=== PATIENT | female | born 1995 | race Two or more races ===

== ENCOUNTER 2020-02-13 07:18 | Observation (INO) | payer MEDICAID ==
[~2020-02-13] VITALS: Ht 157.5 cm; Wt 71.2 kg
[2020-02-13 07:40] VITALS: BP 110/70
[2020-02-13] MEDS ORDERED: ONDANSETRON ODT 4 MG TAB PO ONE (07:45)
== END 2020-02-13 09:15 | disposition home or self-care (01) | DRG 566 ==
LOC: ER 07:18 → LDRP 07:55
PROVIDERS: ADMIT Obstetrics & Gynecology; ATTEND Obstetrics & Gynecology
DX: O21.2 Late vomiting of pregnancy (principal); O98.512 Other viral diseases complicating pregnancy, second trimester; E86.0 Dehydration; R19.7 Diarrhea, unspecified; Z3A.24 24 weeks gestation of pregnancy
CPT/HCPCS: 59025; 81002; 99284; G0378; Q0162

== ENCOUNTER 2020-04-01 13:12 | Observation (INO) | payer MEDICAID | END 2020-04-01 14:39 | disposition home or self-care (01) | DRG 566 | LOC: LDRP 13:12 | PROVIDERS: ADMIT Specialist; ATTEND Specialist | DX: O24.414 Gestational diabetes mellitus in pregnancy, insulin controlled (principal); Z3A.33 33 weeks gestation of pregnancy | CPT/HCPCS: 59025; 76818; 81002; 82962; G0378 ==

== ENCOUNTER 2020-04-05 15:25 | Observation (INO) | payer MEDICAID ==
[2020-04-05] MEDS ORDERED: METF500S PO (16:30)
[2020-04-05] MEDS ORDERED: PREN-96 PO (16:30)
== END 2020-04-05 16:45 | disposition home or self-care (01) | DRG 566 ==
LOC: LDRP 15:25
PROVIDERS: ADMIT Specialist; ATTEND Specialist
DX: O24.414 Gestational diabetes mellitus in pregnancy, insulin controlled (principal); Z3A.33 33 weeks gestation of pregnancy
CPT/HCPCS: 59025; 76818; 81002; 82948; 82962; G0378

== ENCOUNTER 2020-04-08 15:18 | Observation (INO) | payer MEDICAID ==
[~2020-04-08 15:18] MED LIST: METF500S PO; PREN-96 PO
== END 2020-04-08 16:25 | disposition home or self-care (01) | DRG 566 ==
LOC: LDRP 15:18
PROVIDERS: ADMIT Specialist; ATTEND Specialist
DX: O24.414 Gestational diabetes mellitus in pregnancy, insulin controlled (principal); Z3A.34 34 weeks gestation of pregnancy; Z98.891 History of uterine scar from previous surgery
CPT/HCPCS: 59025; 76818; 81002; 82948; 82962; G0378

== ENCOUNTER 2020-04-12 15:23 | Observation (INO) | payer MEDICAID ==
[2020-04-12] MEDS ORDERED: LACTATED RINGER'S 1,000 ML IV ONE (17:30)
== END 2020-04-12 20:21 | disposition home or self-care (01) | DRG 566 ==
LOC: LDRP 15:23
PROVIDERS: ADMIT Specialist; ATTEND Specialist
DX: O24.419 Gestational diabetes mellitus in pregnancy, unspecified control (principal); Z3A.34 34 weeks gestation of pregnancy
CPT/HCPCS: 59025; 76818; 81002; 82962; 94760; 96360; 96361; G0378

== ENCOUNTER 2020-04-15 13:20 | Observation (INO) | payer MEDICAID ==
[2020-04-15 15:02] LABS: Protein, Urine 8.2 mg/dL (0.0-11.9)
[2020-04-15 16:03] LABS: Creatinine Clearance, Urine 836.06 mL/min (75-115)
== END 2020-04-15 16:16 | disposition home or self-care (01) | DRG 566 ==
LOC: LDRP 13:20
PROVIDERS: ADMIT Specialist; ATTEND Specialist
DX: O99.89 Other specified diseases and conditions complicating pregnancy, childbirth and the puerperium (principal); R33.9 Retention of urine, unspecified; Z3A.35 35 weeks gestation of pregnancy
CPT/HCPCS: 59025; 76818; 81002; 82575; 82962; 84156; G0378

== ENCOUNTER 2020-04-19 13:18 | Observation (INO) | payer MEDICAID | END 2020-04-19 14:41 | disposition home or self-care (01) | DRG 566 | LOC: LDRP 13:18 | PROVIDERS: ADMIT Specialist; ATTEND Specialist | DX: O24.414 Gestational diabetes mellitus in pregnancy, insulin controlled (principal); Z3A.35 35 weeks gestation of pregnancy | CPT/HCPCS: 59025; 76818; 81002; 82948; 82962; G0378 ==

== ENCOUNTER 2020-04-22 12:31 | Observation (INO) | payer MEDICAID | END 2020-04-22 14:10 | disposition home or self-care (01) | DRG 566 | LOC: LDRP 13:30 | PROVIDERS: ADMIT Specialist; ATTEND Specialist | DX: O24.415 Gestational diabetes mellitus in pregnancy, controlled by oral hypoglycemic drugs (principal); Z3A.36 36 weeks gestation of pregnancy | CPT/HCPCS: 59025; 76818; 81002; 82962; G0378 ==

== ENCOUNTER 2020-04-26 10:02 | Observation (INO) | payer MEDICAID | END 2020-04-26 13:50 | disposition home or self-care (01) | DRG 566 | LOC: LDRP 12:06 | PROVIDERS: ADMIT Specialist; ATTEND Specialist | DX: O24.415 Gestational diabetes mellitus in pregnancy, controlled by oral hypoglycemic drugs (principal); O34.219 Maternal care for unspecified type scar from previous cesarean delivery; Z3A.36 36 weeks gestation of pregnancy | CPT/HCPCS: 59025; 76818; 81002; 82948; 82962; G0378 ==

== ENCOUNTER 2020-04-29 09:30 | Observation (INO) | payer MEDICAID | END 2020-04-29 10:38 | disposition home or self-care (01) | DRG 566 | LOC: LDRP 09:30 | PROVIDERS: ADMIT Specialist; ATTEND Specialist | DX: O24.414 Gestational diabetes mellitus in pregnancy, insulin controlled (principal); Z3A.36 36 weeks gestation of pregnancy; Z79.84 Long term (current) use of oral hypoglycemic drugs; Z98.891 History of uterine scar from previous surgery | CPT/HCPCS: 59025; 76818; 81002; 82948; 82962; G0378 ==

== ENCOUNTER 2020-05-03 09:30 | Observation (INO) | payer MEDICAID ==
[~2020-05-03] VITALS: Ht 157.5 cm; Wt 74.4 kg
[2020-05-03 10:46] LABS: Protein, Urine 13.2 mg/dL (0.0-11.9)
[2020-05-03 11:15] LABS: 24 Hr. Total Protein, Urine 369.6 mg/24 Hr (<149.1)
== END 2020-05-03 11:15 | disposition home or self-care (01) | DRG 566 ==
LOC: LDRP 09:30
PROVIDERS: ADMIT Obstetrics & Gynecology; ATTEND Obstetrics & Gynecology
DX: O24.419 Gestational diabetes mellitus in pregnancy, unspecified control (principal); Z3A.37 37 weeks gestation of pregnancy
CPT/HCPCS: 59025; 76818; 81002; 82962; 84156; 94760; G0378

== ENCOUNTER 2020-05-04 09:50 | Inpatient (IN) | payer MEDICAID ==
[~2020-05-04] VITALS: Ht 157.5 cm; Wt 75.7 kg
[2020-05-04] MEDS ORDERED: LACTATED RINGER'S 1,000 ML IV ONE (11:00)
[2020-05-04] MEDS ORDERED: NIFEdipine 10 MG CAP PO ONE (11:00)
[2020-05-04] MEDS ORDERED: LACTATED RINGER'S 1,000 ML IV SCH ×2 (11:30→18:47)
[2020-05-04] MEDS ORDERED: NIFEdipine 10 MG CAP PO SCH ×2 (16:00→18:00)
[2020-05-04 16:03] LABS: Basophils # (auto) 0.1 10 ^3/uL (0-0.2); Basophils % (auto) 0.7 % (0.0-2.0); Eosinophils # (auto) 0 10 ^3/uL (0-0.8); Eosinophils % (auto) 0.5 % (0.0-7.0); Hematocrit 37.7 % (36.0-46.0); Hemoglobin 12.2 g/dL (12.2-16.2); Lymphocytes # (auto) 1.3 10 ^3/uL (0.4-5.4); Lymphocytes % (auto) 14.9 % (10.0-50.0); Mean Corpuscular Hemoglobin 28.1 pg (28.0-32.0); Mean Corpuscular Hgb Conc. 32.3 g/dL (32.0-36.0); Monocytes # (auto) 0.6 10 ^3/uL (0-1.3); Monocytes % (auto) 6.3 % (0.0-12.0); Neutrophils # (auto) 6.9 10 ^3/uL (1.6-8.6); Neutrophils % (auto) 77.6 % (37.0-80.0); Nucleated Red Blood Cells % 0.1 %; Platelet Count (auto) 132 10^3/uL (140-450); Red Blood Cells 4.34 10^6/uL (4.0-5.20); Red Cell Distribution Width 15.9 % (11.8-14.3); White Blood Cell 8.9 10^3/uL (4.4-10.8)
[2020-05-04 16:24] LABS: Albumin 2.5 g/dL (3.4-5.0); Potassium 4.2 mmol/L (3.5-5.1); Uric Acid 4.8 mg/dL (2.6-6.0)
[2020-05-04 16:27] LABS: BUN/Creatinine Ratio 10.5; Bilirubin, Total 0.3 mg/dL (0.2-1.0); INR 0.95 (0.9-1.15); Partial Thromboplastin Time 30.3 sec (23.64-32.05); Total Protein 6.4 g/dL (6.4-8.2)
[2020-05-04 16:41] LABS: Urine Bacteria MANY /hpf (None Seen); Urine Blood Negative /uL (Negative); Urine Specific Gravity 1.008 (1.001-1.035); Urine WBC 2 /hpf (0 - 5)
[2020-05-04] MEDS ORDERED: TETRACAINE 1% INJ 2 ML VIAL IJ ONE (17:26)
[2020-05-04] MEDS ORDERED: MORPHINE SULF(PF) 0.5MG/ML 10ML VIAL ONE (17:38)
[2020-05-04] MEDS ORDERED: fentaNYL CITRATE 100 MCG/2 ML VL ONE (17:38)
[2020-05-04] MEDS ORDERED: SUCCINYLCHOLINE CHLORIDE 20 MG/ML 10ML VIAL IV ONE (17:40)
[2020-05-04] MEDS ORDERED: ONDANSETRON HCL 4 MG/2 ML VIAL IV PRN ×2 (19:00)
[2020-05-04] MEDS ORDERED: diphenhdrAMINE HCL 50 MG/1 ML VL IV PRN (19:00)
[2020-05-04] MEDS ORDERED: GUM (CHEWING) 1 GUM CHEW CHEW ONE (19:00)
[2020-05-04] MEDS ORDERED: ACETAMINOPHEN IV 1000 MG/100ML (10MG/ML) IV PRN (19:00)
[2020-05-04] MEDS ORDERED: NALOXONE HCL 0.4 MG/ML VIAL IV PRN (19:00)
[2020-05-04] MEDS ORDERED: HYDROmorphone HCL 2 MG/ML VL IV PRN ×2 (19:00)
[2020-05-04] MEDS ORDERED: KETOROLAC TROMETH 30 MG/ML 1ML VIAL IV PRN (19:00)
[2020-05-04 23:00] VITALS: BP 114/72
[2020-05-05] MEDS: ceFAZolin 1GM/50ML 50 ML IV SCH ×3 (01:48→17:51)
[2020-05-05 03:00] VITALS: BP 111/68
[2020-05-05 05:07] LABS: RPR Non Reactive (Non Reactive)
[2020-05-05 06:56] VITALS: BP 105/68
--- NOTE | 2020-05-05 07:30 | NUR ---
Pulido catheter dc'd Order to discontinue pulido catheter. Pulido dc'd with clean technique following deflation of balloon. Patient tolerated well with no complaints of pain. Continue care.
[2020-05-05 07:49] LABS: Basophils # (auto) 0.1 10 ^3/uL (0-0.2); Basophils % (auto) 0.5 % (0.0-2.0); Eosinophils # (auto) 0.1 10 ^3/uL (0-0.8); Eosinophils % (auto) 0.7 % (0.0-7.0); Hematocrit 33.3 % (36.0-46.0); Lymphocytes # (auto) 1.4 10 ^3/uL (0.4-5.4); Lymphocytes % (auto) 13.9 % (10.0-50.0); Mean Corpuscular Hemoglobin 28.6 pg (28.0-32.0); Mean Corpuscular Hgb Conc. 33.2 g/dL (32.0-36.0); Mean Corpuscular Volume 86.3 fL (80.0-100.0); Monocytes # (auto) 0.8 10 ^3/uL (0-1.3); Monocytes % (auto) 7.4 % (0.0-12.0); Neutrophils % (auto) 77.5 % (37.0-80.0); Platelet Count (auto) 112 10^3/uL (140-450); Red Blood Cells 3.86 10^6/uL (4.0-5.20); Red Cell Distribution Width 15.5 % (11.8-14.3); White Blood Cell 10.3 10^3/uL (4.4-10.8)
--- NOTE | 2020-05-05 08:45 | NUR ---
PT ambulates in [place] with no signs of distress.
[2020-05-05 10:45] VITALS: BP 96/61
--- NOTE | 2020-05-05 14:11 | NUR ---
Received Post Op day [address] Callahan.
[2020-05-05] MEDS ORDERED: SIMETHICONE 80 MG CHEWABLE TABLET PO PRN (14:15)
[2020-05-05] MEDS ORDERED: HYDROcodone-ACET 5/325MG TAB PO PRN (14:15)
[2020-05-05] MEDS: IBUPROFEN 800 MG TAB PO PRN ×2 (15:16→22:51)
[2020-05-05 15:22] VITALS: BP 112/72
[2020-05-05] MEDS ORDERED: ceFAZolin 1GM/50ML 50 ML IV ONE (17:49)
[2020-05-05 18:55] VITALS: BP 106/68
[2020-05-05] MEDS: DOCUSATE SOD 100 MG CAP PO SCH (22:05)
[2020-05-05 22:55] VITALS: BP 119/76
[2020-05-06 03:15] VITALS: BP 117/77
[2020-05-06] MEDS: HYDROcodone-ACET 5/325MG TAB PO PRN ×2 (03:30→15:10)
[2020-05-06 07:00] VITALS: BP 124/79
--- NOTE | 2020-05-06 07:00 | NUR ---
Educated on need to use IS 10x hour to prevent pneumonia. Verbalized understanding. Demonstrated proper technique. Reach 1500. Addendum: 05/06/20 at 1113 by DAKOTA GUY RN Amended: Links added.
--- NOTE | 2020-05-06 07:00 | NUR ---
IV removal IV DC'd with sterile technique, catheter fully intact. Pressure dressing applied to site. Patient tolerated procedure well. Discharged with aftercare instructions per MD. Addendum: 05/06/20 at 1110 by DAKOTA GUY RN Amended: Links added.
[2020-05-06] MEDS: DOCUSATE SOD 100 MG CAP PO SCH ×2 (10:43→21:58)
[2020-05-06] MEDS: IBUPROFEN 800 MG TAB PO PRN ×2 (10:44→21:58)
[2020-05-06 10:45] VITALS: BP 122/73
[2020-05-06 15:00] VITALS: BP 121/86
[2020-05-06 19:00] VITALS: BP 109/72
[2020-05-06 22:59] VITALS: BP 134/82
[2020-05-07] MEDS: HYDROcodone-ACET 5/325MG TAB PO PRN ×2 (02:46→08:29)
[2020-05-07 02:52] VITALS: BP 121/78
[2020-05-07 07:10] VITALS: BP 125/80
--- NOTE | 2020-05-07 07:44 | NUR ---
C/S Staple Removal DC Note: [place] removed by Arely SOLITARIO. Lower abdominal incision approximated, no drainage/redness/inflammation visualized at time of removal. Steri-strips applied. Education provided on incisional care. Patient verbalized understanding and willingness to comply to instructions/teaching provided.
--- NOTE | 2020-05-07 07:46 | NUR ---
Discharge: Discharge instructions given as ordered. Pt encouraged to follow up with [facility] as instructed. All questions and concerns addressed. Patient verbalized understanding. Medication reconciliation completed and copy given to patient. All required/requested vaccines given and copies of vaccinations given to patient. Patient encouraged to prepare to depart unit.
--- NOTE | 2020-05-07 09:30 | NUR ---
Discharge: Patient taken to vehicle ambulating with all personal belongings, accompanied by staff and family member. No distress noted at time of departure, no adverse changes in status since initial assessment.
== END 2020-05-07 09:30 | disposition home or self-care (01) | DRG 540 ==
LOC: OBSVTOIN 09:50 → LDRP 09:50
PROVIDERS: ADMIT Specialist; ATTEND Specialist
PROC: 10D00Z1 Extraction of Products of Conception, Low, Open Approach (ICD-10-PCS; principal; 2020-05-04 17:36)
DX: O24.425 Gestational diabetes mellitus in childbirth, controlled by oral hypoglycemic drugs (principal); O34.211 Maternal care for low transverse scar from previous cesarean delivery; O69.81X0 Labor and delivery complicated by cord around neck, without compression, not applicable or unspecified; O77.0 Labor and delivery complicated by meconium in amniotic fluid; Z37.0 Single live birth; Z3A.37 37 weeks gestation of pregnancy; Z11.59 Encounter for screening for other viral diseases
CPT/HCPCS: 36415; 80053; 81001; 82948; 82962; 84112; 84550; 85025; 85610; 85730; 86592; 86850; 86900; 86901; 94762; 96360; 96361; 96366; G0378; J0131; J0330; J0690; J1885

== ENCOUNTER → 2020-05-15 | Emergency (ER) | payer MEDICAID ==
[~2020-05-15] MED LIST changes: -METF500S PO
[2020-05-16 00:27] VITALS: BP 124/75
== END | disposition home or self-care (01) ==
LOC: ER 23:02
DX: N61.0 Mastitis without abscess (principal); R50.9 Fever, unspecified